=== PATIENT | female | born 1940 | race Caucasian/White ===

== ENCOUNTER 2018-04-09 21:26 | Inpatient (IN) ==
[2018-04-09] MEDS ORDERED: ONDANSETRON 4 MG/2 ML VIAL IV STA (22:34)
[2018-04-09] MEDS ORDERED: MORPHINE 4 MG/1 ML VIAL IV STA (22:34)
[2018-04-09] MEDS ORDERED: methylPREDNISolone SOD SUC 125 MG/2 ML VIAL IV STA (22:34)
[2018-04-09] MEDS ORDERED: cefTRIAXone 1,000 MG in SODIUM CHLORIDE 0.9% 100 ML IV STA (22:34)
[2018-04-09] MEDS ORDERED: ALBUTEROL 2.5 MG/3 ML NEB RESP TX SCH (23:00)
[2018-04-09 23:40] LABS: Basophils % 0.5 % (0.0-0.8); Eosinophils # 0.4 10*3/uL (0.0-0.87); Hematocrit 36.9 VOL% (35.7-47.0); Hemoglobin 11.9 GM/DL (12.0-16.0); Immature Granulocytes % 0.3 %; Immature Granulocytes Absolute 0.02 #; Lymphocytes # 2.3 10*3/uL (1.4-4.0); Lymphocytes % 36.9 % (21.3-54.2); Mean Corpuscular HGB Conc 32.2 GM/DL (32-36); Mean Corpuscular Hemoglobin 32 PG (27-34); Mean Corpuscular Volume 100.5 FL (87-102); Mean Platelet Volume 10.9 FL (9.6-12.0); Monocytes # 0.8 10*3/uL (0.11-0.8); Monocytes % 12.3 % (1.7-12.7); Neutrophils # 2.7 10*3/uL (1.4-7.4); Platelet Count 168 T/CUMM (130-400); Red Blood Count 3.67 MC/CUMM (3.8-5.5); Red Cell Distribution Width 13.9 % (9.3-17.3); White Blood Count 6.2 T/CUMM (4-12)
[2018-04-09 23:50] LABS: PT Patient Result 10.5 SECS
[2018-04-10 00:03] LABS: Alanine Aminotransferase 40 U/L (13-56); Albumin 3.1 G/DL (3.4-5.0); Alkaline Phosphatase 94 U/L (45-117); Aspartate Amino Transferase 31 U/L (0-37); Blood Urea Nitrogen 25 MG/DL (7-18); Glucose 115 MG/DL (74-106); Osmolality,Calculated 287.1 MOS/KG (273-304); Potassium 3.3 MMOL/L (3.5-5.1); Sodium 142 MMOL/L (136-145); Total Protein 6.9 G/DL (6.4-8.3); Troponin I Only 0.033 NG/ML (0.00-0.045)
[2018-04-10 00:08] LABS: Lactic Acid 2.1 MMOL/L (0.4-2.0)
[2018-04-10] MEDS ORDERED: ACETAMINOPHEN 325 MG TABLET PO PRN (02:09)
[2018-04-10] MEDS ORDERED: ALBUTEROL 2.5 MG/3 ML NEB RESP TX PRN (02:09)
[2018-04-10] MEDS ORDERED: MORPHINE 4 MG/1 ML VIAL IV PRN (02:09)
[2018-04-10] MEDS ORDERED: ONDANSETRON 4 MG/2 ML VIAL IV PRN (02:09)
[2018-04-10] MEDS ORDERED: GLUCAGON 1 MG VIAL IM PRN (02:09)
[2018-04-10] MEDS ORDERED: ALBUTEROL/IPRATROPIUM 3 ML NEB RESP TX PRN ×2 (02:09→12:05)
[2018-04-10] MEDS ORDERED: DEXTROSE 50% 25 GM/50 ML VIAL IV PRN (02:09)
[2018-04-10] MEDS: cefTRIAXone 1,000 MG in SYRINGE 1 EACH IV SCH (02:40)
[2018-04-10] MEDS: SODIUM CHLORIDE 0.9% 1,000 ML IV SCH (02:47)
[2018-04-10 04:57] LABS: Hematocrit 33.8 VOL% (35.7-47.0); Hemoglobin 11.1 GM/DL (12.0-16.0); Immature Granulocytes % 0.7 %; Immature Granulocytes Absolute 0.04 #; Lymphocytes # 0.3 10*3/uL (1.4-4.0); Lymphocytes % 4.9 % (21.3-54.2); Mean Corpuscular HGB Conc 32.8 GM/DL (32-36); Mean Corpuscular Hemoglobin 32 PG (27-34); Mean Corpuscular Volume 98.5 FL (87-102); Monocytes # 0.1 10*3/uL (0.11-0.8); Monocytes % 2.3 % (1.7-12.7); Neutrophils # 5.6 10*3/uL (1.4-7.4); Neutrophils % 92.1 % (38.7-73.9); Platelet Count 181 T/CUMM (130-400); Red Blood Count 3.43 MC/CUMM (3.8-5.5); Red Cell Distribution Width 14.2 % (9.3-17.3); White Blood Count 6.1 T/CUMM (4-12)
[2018-04-10 05:36] LABS: Total Protein 6.5 G/DL (6.4-8.3)
[2018-04-10 05:37] LABS: Osmolality,Calculated 295.1 MOS/KG (273-304); Potassium 2.8 MMOL/L (3.5-5.1)
[2018-04-10 05:43] LABS: Lactic Acid 2.5 MMOL/L (0.4-2.0)
[2018-04-10 05:53] LABS: Lymphocytes 2 % (20-55); Segmented Neutrophils 98 % (50-85); Total Cells Counted 100
[2018-04-10 05:54] LABS: Platelet Estimate Adequate; Polychromasia Slight; Target Cells Few
[2018-04-10] MEDS: LEVOTHYROXINE 75 MCG TABLET PO SCH (06:20)
[2018-04-10] MEDS ORDERED: methylPREDNISolone SOD SUC 40 MG/1 ML VIAL IV SCH (08:00)
[2018-04-10] MEDS: INSULIN REGULAR 100 UNIT/ML SUBCUT SCH ×4 (08:47→21:08)
[2018-04-10] MEDS: INSULIN NPH 100 UNIT/ML SUBCUT SCH ×2 (08:48→21:08)
[2018-04-10] MEDS: MULTIVITAMIN (BEROCCA) TABLET PO SCH (08:48)
[2018-04-10] MEDS: PRASUGREL 10 MG TABLET PO SCH (08:48)
[2018-04-10] MEDS: ASPIRIN EC 81 MG TABLET PO SCH (08:49)
[2018-04-10] MEDS: PANTOPRAZOLE 40 MG TABLET PO SCH (08:49)
[2018-04-10] MEDS: SEVELAMER CARBONATE 800 MG TABLET PO SCH ×3 (08:49→16:56)
[2018-04-10] MEDS: DOCUSATE SODIUM 100 MG CAPSULE PO SCH ×2 (08:49→21:10)
[2018-04-10] MEDS: AMIODARONE 200 MG TABLET PO SCH (08:56)
[2018-04-10] MEDS ORDERED: SEVELAMER CARBONATE 800 MG TABLET PO SCH (09:00)
[2018-04-10 19:41] LABS: Calcium 8.1 MG/DL (8.5-10.1); Osmolality,Calculated 283.7 MOS/KG (273-304); Potassium 3.3 MMOL/L (3.5-5.1)
[2018-04-10] MEDS: methylPREDNISolone SOD SUC 40 MG/1 ML VIAL IV SCH (21:08)
[2018-04-10] MEDS: ATORVASTATIN 10 MG TABLET PO SCH (21:09)
[2018-04-11] MEDS: cefTRIAXone 1,000 MG in SYRINGE 1 EACH IV SCH (00:52)
[2018-04-11] MEDS: SODIUM CHLORIDE 0.9% 1,000 ML IV SCH (03:12)
[2018-04-11 05:39] LABS: Basophils % 0.1 % (0.0-0.8); Immature Granulocytes % 0.5 %; Immature Granulocytes Absolute 0.06 #; Lymphocytes # 0.7 10*3/uL (1.4-4.0); Lymphocytes % 5.9 % (21.3-54.2); Mean Corpuscular HGB Conc 33.3 GM/DL (32-36); Mean Corpuscular Hemoglobin 33 PG (27-34); Mean Corpuscular Volume 97.6 FL (87-102); Mean Platelet Volume 11.2 FL (9.6-12.0); Monocytes # 0.5 10*3/uL (0.11-0.8); Monocytes % 3.7 % (1.7-12.7); Neutrophils # 11.3 10*3/uL (1.4-7.4); Neutrophils % 89.8 % (38.7-73.9); Platelet Count 173 T/CUMM (130-400); Red Blood Count 3.38 MC/CUMM (3.8-5.5); Red Cell Distribution Width 14.1 % (9.3-17.3); White Blood Count 12.6 T/CUMM (4-12)
[2018-04-11 06:08] LABS: Osmolality,Calculated 285.7 MOS/KG (273-304); Potassium 3.9 MMOL/L (3.5-5.1)
[2018-04-11 06:13] LABS: Risk Ratio 1.67
[2018-04-11] MEDS: LEVOTHYROXINE 75 MCG TABLET PO SCH (06:18)
[2018-04-11] MEDS: INSULIN REGULAR 100 UNIT/ML SUBCUT SCH ×4 (08:45→21:22)
[2018-04-11] MEDS: methylPREDNISolone SOD SUC 40 MG/1 ML VIAL IV SCH ×2 (08:45→21:22)
[2018-04-11] MEDS: INSULIN NPH 100 UNIT/ML SUBCUT SCH ×2 (08:45→21:23)
[2018-04-11] MEDS: AMIODARONE 200 MG TABLET PO SCH (08:46)
[2018-04-11] MEDS: ASPIRIN EC 81 MG TABLET PO SCH (08:47)
[2018-04-11] MEDS: SEVELAMER CARBONATE 800 MG TABLET PO SCH ×4 (08:47→17:05)
[2018-04-11] MEDS: MULTIVITAMIN (BEROCCA) TABLET PO SCH (08:47)
[2018-04-11] MEDS: DOCUSATE SODIUM 100 MG CAPSULE PO SCH ×2 (08:47→21:33)
[2018-04-11] MEDS: PANTOPRAZOLE 40 MG TABLET PO SCH (08:47)
[2018-04-11] MEDS: PRASUGREL 10 MG TABLET PO SCH (08:47)
[2018-04-11] MEDS: ATORVASTATIN 10 MG TABLET PO SCH (21:22)
[2018-04-12] MEDS: cefTRIAXone 1,000 MG in SYRINGE 1 EACH IV SCH (01:43)
[2018-04-12] MEDS: SODIUM CHLORIDE 0.9% 1,000 ML IV SCH (01:44)
[2018-04-12 04:08] LABS: Basophils % 0.1 % (0.0-0.8); Hematocrit 34.7 VOL% (35.7-47.0); Hemoglobin 11.3 GM/DL (12.0-16.0); Immature Granulocytes % 0.7 %; Immature Granulocytes Absolute 0.12 #; Lymphocytes # 0.9 10*3/uL (1.4-4.0); Lymphocytes % 5.1 % (21.3-54.2); Mean Corpuscular HGB Conc 32.6 GM/DL (32-36); Mean Corpuscular Hemoglobin 32 PG (27-34); Mean Corpuscular Volume 99.4 FL (87-102); Mean Platelet Volume 11.8 FL (9.6-12.0); Monocytes # 0.5 10*3/uL (0.11-0.8); Monocytes % 2.8 % (1.7-12.7); Neutrophils # 16.1 10*3/uL (1.4-7.4); Neutrophils % 91.3 % (38.7-73.9); Platelet Count 192 T/CUMM (130-400); Red Blood Count 3.49 MC/CUMM (3.8-5.5); Red Cell Distribution Width 14.1 % (9.3-17.3); White Blood Count 17.7 T/CUMM (4-12)
[2018-04-12 04:20] LABS: Calcium 8.7 MG/DL (8.5-10.1); Osmolality,Calculated 296.3 MOS/KG (273-304); Potassium 4.1 MMOL/L (3.5-5.1)
[2018-04-12 05:50] LABS: Band Neutrophils 1 % (0-10); Hypochromasia 1+; Lymphocytes 8 % (20-55); Platelet Estimate Adequate; Segmented Neutrophils 89 % (50-85); Total Cells Counted 100
[2018-04-12] MEDS: LEVOTHYROXINE 75 MCG TABLET PO SCH (07:21)
[2018-04-12] MEDS: SEVELAMER CARBONATE 800 MG TABLET PO SCH ×4 (07:22→16:35)
[2018-04-12] MEDS: INSULIN REGULAR 100 UNIT/ML SUBCUT SCH ×4 (08:44→20:50)
[2018-04-12] MEDS: INSULIN NPH 100 UNIT/ML SUBCUT SCH ×2 (09:36→20:49)
[2018-04-12] MEDS: methylPREDNISolone SOD SUC 40 MG/1 ML VIAL IV SCH ×2 (09:37→20:49)
[2018-04-12] MEDS: MULTIVITAMIN (BEROCCA) TABLET PO SCH (09:38)
[2018-04-12] MEDS: PRASUGREL 10 MG TABLET PO SCH (09:38)
[2018-04-12] MEDS: DOCUSATE SODIUM 100 MG CAPSULE PO SCH ×2 (09:38→21:19)
[2018-04-12] MEDS: ASPIRIN EC 81 MG TABLET PO SCH (09:38)
[2018-04-12] MEDS: PANTOPRAZOLE 40 MG TABLET PO SCH (09:38)
[2018-04-12] MEDS: AMIODARONE 200 MG TABLET PO SCH (09:42)
[2018-04-12] MEDS: ATORVASTATIN 10 MG TABLET PO SCH (20:49)
[2018-04-13] MEDS: cefTRIAXone 1,000 MG in SYRINGE 1 EACH IV SCH (00:48)
[2018-04-13] MEDS: SODIUM CHLORIDE 0.9% 1,000 ML IV SCH (04:21)
[2018-04-13 04:38] LABS: Basophils % 0.1 % (0.0-0.8); Hematocrit 32.8 VOL% (35.7-47.0); Hemoglobin 11.1 GM/DL (12.0-16.0); Immature Granulocytes % 0.9 %; Immature Granulocytes Absolute 0.15 #; Lymphocytes # 0.9 10*3/uL (1.4-4.0); Lymphocytes % 5.3 % (21.3-54.2); Mean Corpuscular HGB Conc 33.8 GM/DL (32-36); Mean Corpuscular Hemoglobin 33 PG (27-34); Mean Corpuscular Volume 96.5 FL (87-102); Mean Platelet Volume 11.8 FL (9.6-12.0); Monocytes # 0.5 10*3/uL (0.11-0.8); Monocytes % 3.1 % (1.7-12.7); Neutrophils # 15.4 10*3/uL (1.4-7.4); Neutrophils % 90.6 % (38.7-73.9); Platelet Count 187 T/CUMM (130-400); Red Cell Distribution Width 14.4 % (9.3-17.3)
[2018-04-13 05:11] LABS: Calcium 8.1 MG/DL (8.5-10.1); Osmolality,Calculated 303.5 MOS/KG (273-304); Potassium 4.4 MMOL/L (3.5-5.1)
[2018-04-13 05:19] LABS: Lymphocytes 9 % (20-55); Segmented Neutrophils 89 % (50-85); Total Cells Counted 100
[2018-04-13 05:20] LABS: Atypical Lymphocytes Few; Hypochromasia 1+; Platelet Estimate Normal; Polychromasia Few
[2018-04-13] MEDS: LEVOTHYROXINE 75 MCG TABLET PO SCH (06:05)
[2018-04-13] MEDS: INSULIN REGULAR 100 UNIT/ML SUBCUT SCH ×2 (12:40→12:41)
[2018-04-13] MEDS: SEVELAMER CARBONATE 800 MG TABLET PO SCH ×3 (12:41→12:56)
[2018-04-13] MEDS: PANTOPRAZOLE 40 MG TABLET PO SCH (12:58)
[2018-04-13] MEDS: AMIODARONE 200 MG TABLET PO SCH (12:58)
[2018-04-13] MEDS: ASPIRIN EC 81 MG TABLET PO SCH (12:58)
[2018-04-13] MEDS: PRASUGREL 10 MG TABLET PO SCH (12:59)
[2018-04-13] MEDS: DOCUSATE SODIUM 100 MG CAPSULE PO SCH (12:59)
[2018-04-13] MEDS: MULTIVITAMIN (BEROCCA) TABLET PO SCH (12:59)
[2018-04-13] MEDS: INSULIN NPH 100 UNIT/ML SUBCUT SCH (13:00)
[2018-04-13] MEDS: methylPREDNISolone SOD SUC 40 MG/1 ML VIAL IV SCH (13:01)
[2018-04-13 16:24] VITALS: BP 141/62
== END 2018-04-13 16:23 | disposition home or self-care (01) | DRG 291 ==
LOC: N.ED 21:26 → N.EDINP 04-10 00:55 → N.TELEN 04-10 01:51
PROVIDERS: ADMIT Family Medicine; ATTEND Family Medicine

== ENCOUNTER 2019-10-21 18:33 | Observation (INO) ==
[2019-10-21] MEDS ORDERED: SODIUM CHLORIDE 0.9% 1,000 ML IV STA (19:19)
[2019-10-21] MEDS ORDERED: ONDANSETRON 4 MG/2 ML VIAL IV STA (19:19)
[2019-10-21 19:44] LABS: Basophils % 0.3 % (0.0-0.8); Eosinophils % 0.4 % (0.00-10.9); Hematocrit 41.1 VOL% (35.7-47.0); Hemoglobin 13.1 GM/DL (12.0-16.0); Immature Granulocytes % 0.5 %; Immature Granulocytes Absolute 0.04 #; Lymphocytes # 0.5 10*3/uL (1.4-4.0); Lymphocytes % 6.1 % (21.3-54.2); Mean Corpuscular HGB Conc 31.9 GM/DL (32-36); Mean Corpuscular Volume 102.2 FL (87-102); Mean Platelet Volume 10.9 FL (9.6-12.0); Monocytes % 7.5 % (1.7-12.7); Neutrophils % 85.2 % (38.7-73.9); Platelet Count 209 T/CUMM (130-400); Red Blood Count 4.02 MC/CUMM (3.8-5.5); Red Cell Distribution Width 15.4 % (9.3-17.3); White Blood Count 7.3 T/CUMM (4-12)
[2019-10-21 20:02] LABS: Albumin 3.3 G/DL (3.4-5.0); Bilirubin,Total 0.4 MG/DL (0.2-1.0); Calcium 8.6 MG/DL (8.5-10.1); Osmolality,Calculated 295.1 MOS/KG (273-304); Total Protein 7.2 G/DL (6.4-8.3)
[2019-10-21] MEDS ORDERED: ONDANSETRON 4 MG/2 ML VIAL IV PRN (20:31)
[2019-10-21] MEDS ORDERED: PROMETHAZINE 25 MG/1 ML VIAL IM PRN (20:31)
[2019-10-21] MEDS ORDERED: ACETAMINOPHEN 325 MG TABLET PO PRN (20:31)
[2019-10-21] MEDS ORDERED: hydrALAZINE 20 MG/1 ML VIAL IV PRN (20:58)
[2019-10-21] MEDS ORDERED: GLUCAGON 1 MG VIAL IM PRN (20:59)
[2019-10-21] MEDS ORDERED: DEXTROSE 50% 25 GM/50 ML VIAL IV PRN (20:59)
[2019-10-21] MEDS: INSULIN LISPRO 100 UNIT/ML SUBCUT SCH (22:29)
[2019-10-21] MEDS: DEXTROSE 5% NACL 0.9% 1,000 ML IV SCH (22:36)
[2019-10-22 05:58] LABS: Basophils % 0.2 % (0.0-0.8); Eosinophils # 0.1 10*3/uL (0.0-0.87); Eosinophils % 2.5 % (0.00-10.9); Hemoglobin 10.7 GM/DL (12.0-16.0); Immature Granulocytes % 0.2 %; Immature Granulocytes Absolute 0.01 #; Lymphocytes # 0.6 10*3/uL (1.4-4.0); Lymphocytes % 12.6 % (21.3-54.2); Mean Corpuscular HGB Conc 31.5 GM/DL (32-36); Mean Corpuscular Volume 102.7 FL (87-102); Mean Platelet Volume 11.4 FL (9.6-12.0); Monocytes % 12.8 % (1.7-12.7); Neutrophils % 71.7 % (38.7-73.9); Platelet Count 172 T/CUMM (130-400); Red Blood Count 3.31 MC/CUMM (3.8-5.5); Red Cell Distribution Width 15.6 % (9.3-17.3); White Blood Count 4.5 T/CUMM (4-12)
[2019-10-22 06:30] LABS: Calcium 8.1 MG/DL (8.5-10.1)
[2019-10-22 06:31] LABS: Osmolality,Calculated 286.7 MOS/KG (273-304)
[2019-10-22] MEDS: INSULIN LISPRO 100 UNIT/ML SUBCUT SCH ×3 (09:28→19:32)
[2019-10-22] MEDS ORDERED: SEVELAMER CARBONATE 800 MG TABLET PO SCH (10:00)
[2019-10-22] MEDS: ASPIRIN EC 81 MG TABLET PO SCH (11:12)
[2019-10-22] MEDS: AMIODARONE 200 MG TABLET PO SCH (11:12)
[2019-10-22] MEDS: SEVELAMER CARBONATE 800 MG TABLET PO SCH ×2 (11:13→17:13)
[2019-10-22] MEDS: PRASUGREL 10 MG TABLET PO SCH (11:13)
[2019-10-22] MEDS: DEXTROSE 5% NACL 0.9% 1,000 ML IV SCH (13:15)
[2019-10-22] MEDS: CHOLESTYRAMINE 4 GM PACK PO SCH ×2 (15:20→23:54)
[2019-10-22 19:21] LABS: Hepatitis B Core IgM Quant 0.05 Index; Hepatitis B Surface Ag Quant < 0.10 Index; Hepatitis B Surface Ag Result Negative (Negative); Hepatitis C Virus Ab Quant 0.16 Index; Hepatitis C Virus Ab Result Negative (Negative)
[2019-10-22] MEDS: ATORVASTATIN 10 MG TABLET PO SCH (23:54)
[2019-10-23] MEDS: INSULIN LISPRO 100 UNIT/ML SUBCUT SCH ×5 (00:15→22:07)
[2019-10-23 05:43] LABS: Basophils % 0.2 % (0.0-0.8); Eosinophils # 0.2 10*3/uL (0.0-0.87); Eosinophils % 3.3 % (0.00-10.9); Hematocrit 33.1 VOL% (35.7-47.0); Hemoglobin 10.3 GM/DL (12.0-16.0); Immature Granulocytes % 0.4 %; Immature Granulocytes Absolute 0.02 #; Lymphocytes # 0.8 10*3/uL (1.4-4.0); Lymphocytes % 14.9 % (21.3-54.2); Mean Corpuscular HGB Conc 31.1 GM/DL (32-36); Mean Corpuscular Volume 104.4 FL (87-102); Mean Platelet Volume 10.9 FL (9.6-12.0); Neutrophils % 65.2 % (38.7-73.9); Platelet Count 173 T/CUMM (130-400); Red Blood Count 3.17 MC/CUMM (3.8-5.5); Red Cell Distribution Width 15.2 % (9.3-17.3); White Blood Count 5.5 T/CUMM (4-12)
[2019-10-23 06:11] LABS: Free T4 (Free Thyroxine) 1.03 NG/DL (0.76-1.46); Thyroid Stimulating Hormone 1.51 uIU/ml (0.358-3.74)
[2019-10-23] MEDS: LEVOTHYROXINE 75 MCG TABLET PO SCH (06:12)
[2019-10-23 06:14] LABS: Folate 20.6 NG/ML (5.4-24.0); Vitamin B12 1159 PG/ML (211-911)
[2019-10-23 06:19] LABS: % Iron Saturation 10.9 % (18-50); Calcium 7.9 MG/DL (8.5-10.1); Ferritin 992.5 ng/ml (8-252); Osmolality,Calculated 278.7 MOS/KG (273-304)
[2019-10-23 06:41] LABS: Band Neutrophils 2 % (0-10); Eosinophils 4 % (0-10); Lymphocytes 14 % (20-55); Segmented Neutrophils 64 % (50-85); Total Cells Counted 100
[2019-10-23 06:42] LABS: Hypochromasia 1+; Platelet Estimate Normal; Polychromasia Few
[2019-10-23 07:11] LABS: Sedimentation Rate-Westergren 50 MM/HR (0-30)
[2019-10-23 08:00] LABS: Parathyroid Hormone Intact 390.6 PG/ML (18.4-80.1)
[2019-10-23] MEDS: PRASUGREL 10 MG TABLET PO SCH (08:09)
[2019-10-23] MEDS: ASPIRIN EC 81 MG TABLET PO SCH (08:09)
[2019-10-23] MEDS: AMIODARONE 200 MG TABLET PO SCH (08:09)
[2019-10-23] MEDS: CHOLESTYRAMINE 4 GM PACK PO SCH ×2 (08:09→21:59)
[2019-10-23] MEDS: SEVELAMER CARBONATE 800 MG TABLET PO SCH ×3 (08:11→18:00)
[2019-10-23] MEDS: DEXTROSE 5% NACL 0.9% 1,000 ML IV SCH ×2 (08:14→22:00)
[2019-10-23] MEDS: ATORVASTATIN 10 MG TABLET PO SCH (21:59)
[2019-10-24] MEDS: LEVOTHYROXINE 75 MCG TABLET PO SCH (05:33)
[2019-10-24 05:34] LABS: Basophils % 0.4 % (0.0-0.8); Eosinophils # 0.2 10*3/uL (0.0-0.87); Eosinophils % 4.4 % (0.00-10.9); Hematocrit 32.2 VOL% (35.7-47.0); Hemoglobin 10.1 GM/DL (12.0-16.0); Immature Granulocytes % 0.4 %; Immature Granulocytes Absolute 0.02 #; Lymphocytes % 18.1 % (21.3-54.2); Mean Corpuscular HGB Conc 31.4 GM/DL (32-36); Mean Corpuscular Volume 105.2 FL (87-102); Mean Platelet Volume 11.3 FL (9.6-12.0); Monocytes % 15.4 % (1.7-12.7); Neutrophils % 61.3 % (38.7-73.9); Platelet Count 158 T/CUMM (130-400); Red Blood Count 3.06 MC/CUMM (3.8-5.5); Red Cell Distribution Width 14.6 % (9.3-17.3); White Blood Count 5.5 T/CUMM (4-12)
[2019-10-24] MEDS: SEVELAMER CARBONATE 800 MG TABLET PO SCH ×3 (08:24→17:25)
[2019-10-24] MEDS: ASPIRIN EC 81 MG TABLET PO SCH (08:24)
[2019-10-24] MEDS: AMIODARONE 200 MG TABLET PO SCH (08:25)
[2019-10-24] MEDS: PRASUGREL 10 MG TABLET PO SCH (08:25)
[2019-10-24] MEDS: INSULIN LISPRO 100 UNIT/ML SUBCUT SCH ×4 (08:26→21:00)
[2019-10-24] MEDS: CHOLESTYRAMINE 4 GM PACK PO SCH ×2 (08:26→21:01)
[2019-10-24] MEDS: DEXTROSE 5% NACL 0.9% 1,000 ML IV SCH (14:43)
[2019-10-24] MEDS ORDERED: DEXTROSE 10% 250 ML BAG IV PRN (17:32)
[2019-10-24] MEDS: ATORVASTATIN 10 MG TABLET PO SCH (21:00)
[2019-10-25] MEDS: LEVOTHYROXINE 75 MCG TABLET PO SCH (06:47)
[2019-10-25 07:04] LABS: Basophils % 0.3 % (0.0-0.8); Eosinophils # 0.3 10*3/uL (0.0-0.87); Eosinophils % 4.6 % (0.00-10.9); Hematocrit 33.1 VOL% (35.7-47.0); Hemoglobin 10.4 GM/DL (12.0-16.0); Immature Granulocytes % 0.3 %; Immature Granulocytes Absolute 0.02 #; Lymphocytes # 1.2 10*3/uL (1.4-4.0); Lymphocytes % 19.4 % (21.3-54.2); Mean Corpuscular HGB Conc 31.4 GM/DL (32-36); Mean Corpuscular Volume 103.1 FL (87-102); Mean Platelet Volume 11.6 FL (9.6-12.0); Monocytes % 12.2 % (1.7-12.7); Neutrophils % 63.2 % (38.7-73.9); Platelet Count 170 T/CUMM (130-400); Red Blood Count 3.21 MC/CUMM (3.8-5.5); Red Cell Distribution Width 14.3 % (9.3-17.3); White Blood Count 5.9 T/CUMM (4-12)
[2019-10-25] MEDS: PRASUGREL 10 MG TABLET PO SCH (08:16)
[2019-10-25] MEDS: DEXTROSE 5% NACL 0.9% 1,000 ML IV SCH (08:16)
[2019-10-25] MEDS: ASPIRIN EC 81 MG TABLET PO SCH (08:16)
[2019-10-25] MEDS: AMIODARONE 200 MG TABLET PO SCH (08:16)
[2019-10-25] MEDS: SEVELAMER CARBONATE 800 MG TABLET PO SCH ×3 (08:17→17:20)
[2019-10-25] MEDS: INSULIN LISPRO 100 UNIT/ML SUBCUT SCH ×3 (08:18→15:58)
[2019-10-25] MEDS: CHOLESTYRAMINE 4 GM PACK PO SCH (08:18)
[2019-10-25 21:02] VITALS: BP 121/68
[2019-10-27 10:18] LABS: Hemoglobin A1 (Alkaline) 98.2 % (96.5-98.5); Hemoglobin A2 (Alkaline) 1.8 % (1.5-3.5)
== END 2019-10-25 20:32 | disposition home or self-care (01) ==
LOC: N.ED 18:33 → N.EDINP 18:33 → SUATTDRO 20:31 → N.EDINP 21:30 → N.5E 22:05
PROVIDERS: ADMIT Hospitalist; ATTEND Internal Medicine

== ENCOUNTER 2019-11-27 20:50 | Inpatient (IN) ==
[2019-11-27] MEDS ORDERED: ONDANSETRON 4 MG/2 ML VIAL IV STA (21:15)
[2019-11-27] MEDS ORDERED: ALBUTEROL/IPRATROPIUM 3 ML NEB RESP TX STA (21:15)
[2019-11-27] MEDS ORDERED: methylPREDNISolone SOD SUC 125 MG/2 ML VIAL IV STA (21:20)
[2019-11-27 21:59] LABS: Basophils % 0.4 % (0.0-0.8); Eosinophils # 0.4 10*3/uL (0.0-0.87); Eosinophils % 3.4 % (0.00-10.9); Hematocrit 37.2 VOL% (35.7-47.0); Immature Granulocytes % 0.5 %; Immature Granulocytes Absolute 0.06 #; Lymphocytes # 0.7 10*3/uL (1.4-4.0); Lymphocytes % 6.2 % (21.3-54.2); Mean Corpuscular HGB Conc 32.3 GM/DL (32-36); Mean Corpuscular Volume 101.1 FL (87-102); Mean Platelet Volume 11.4 FL (9.6-12.0); Monocytes % 10.7 % (1.7-12.7); Neutrophils % 78.8 % (38.7-73.9); Platelet Count 158 T/CUMM (130-400); Red Blood Count 3.68 MC/CUMM (3.8-5.5); Red Cell Distribution Width 15.2 % (9.3-17.3); White Blood Count 11.4 T/CUMM (4-12)
[2019-11-27 22:20] LABS: Alanine Aminotransferase 25 U/L (13-56); Albumin 3.2 G/DL (3.4-5.0); Alkaline Phosphatase 132 U/L (45-117); Aspartate Amino Transferase 23 U/L (0-37); Blood Urea Nitrogen 29 MG/DL (7-18); Calcium 8.4 MG/DL (8.5-10.1); Estimated Glom Filtration Rate 6 ML/MIN; Glucose 143 MG/DL (74-106); Osmolality,Calculated 286.4 MOS/KG (273-304); Total Protein 7.4 G/DL (6.4-8.3); Troponin I 0.025 NG/ML (0.00-0.045)
[2019-11-27 22:26] LABS: PT Patient Result 10.7 SECS (9.6-12.2); Partial Thromboplastin Time 24.3 SECS (20.8-36.0)
[2019-11-28] MEDS ORDERED: DEXTROSE 50% 25 GM/50 ML SYRINGE IV PRN (03:41)
[2019-11-28] MEDS ORDERED: ALBUTEROL/IPRATROPIUM 3 ML NEB RESP TX PRN (03:41)
[2019-11-28] MEDS ORDERED: ONDANSETRON 4 MG/2 ML VIAL IV PRN (03:41)
[2019-11-28] MEDS ORDERED: GLUCAGON 1 MG VIAL IM PRN (03:41)
[2019-11-28] MEDS ORDERED: DOCUSATE SODIUM 100 MG CAPSULE PO PRN (03:41)
[2019-11-28] MEDS ORDERED: ACETAMINOPHEN 325 MG TABLET PO PRN (03:41)
[2019-11-28] MEDS ORDERED: NITROGLYCERIN SL 0.4 MG TABLET SL PRN (03:41)
[2019-11-28 06:23] LABS: Basophils % 0.2 % (0.0-0.8); Hemoglobin 10.9 GM/DL (12.0-16.0); Immature Granulocytes % 0.4 %; Immature Granulocytes Absolute 0.04 #; Lymphocytes # 0.3 10*3/uL (1.4-4.0); Lymphocytes % 3.4 % (21.3-54.2); Mean Corpuscular HGB Conc 32.1 GM/DL (32-36); Mean Corpuscular Volume 100.6 FL (87-102); Monocytes % 1.1 % (1.7-12.7); Neutrophils % 94.9 % (38.7-73.9); Platelet Count 168 T/CUMM (130-400); Red Blood Count 3.38 MC/CUMM (3.8-5.5); Red Cell Distribution Width 15.3 % (9.3-17.3); White Blood Count 9.2 T/CUMM (4-12)
[2019-11-28] MEDS: LEVOTHYROXINE 75 MCG TABLET PO SCH (06:36)
[2019-11-28] MEDS: SEVELAMER CARBONATE 800 MG TABLET PO SCH ×5 (06:36→23:05)
[2019-11-28 06:49] LABS: Calcium 8.3 MG/DL (8.5-10.1); Osmolality,Calculated 291.5 MOS/KG (273-304)
[2019-11-28 08:22] LABS: Anisocytosis Slight; Band Neutrophils 4 % (0-10); Lymphocytes 4 % (20-55); Macrocytosis 1+; Platelet Estimate Normal; Segmented Neutrophils 90 % (50-85); Total Cells Counted 100
[2019-11-28] MEDS: INSULIN LISPRO 100 UNIT/ML SUBCUT SCH ×4 (08:54→21:47)
[2019-11-28] MEDS: PRASUGREL 10 MG TABLET PO SCH (08:55)
[2019-11-28] MEDS: ASPIRIN EC 81 MG TABLET PO SCH (08:55)
[2019-11-28] MEDS: INSULIN NPH 100 UNIT/ML SUBCUT SCH ×2 (08:55→17:10)
[2019-11-28] MEDS: MULTIVITAMIN (BEROCCA) TABLET PO SCH (08:55)
[2019-11-28] MEDS: AMIODARONE 200 MG TABLET PO SCH (08:56)
[2019-11-28] MEDS: ATORVASTATIN 10 MG TABLET PO SCH (21:47)
[2019-11-29 04:47] LABS: Basophils % 0.2 % (0.0-0.8); Eosinophils % 0.1 % (0.00-10.9); Hematocrit 33.2 VOL% (35.7-47.0); Hemoglobin 10.6 GM/DL (12.0-16.0); Immature Granulocytes % 0.6 %; Immature Granulocytes Absolute 0.08 #; Lymphocytes # 0.7 10*3/uL (1.4-4.0); Lymphocytes % 5.5 % (21.3-54.2); Mean Corpuscular HGB Conc 31.9 GM/DL (32-36); Mean Corpuscular Volume 101.8 FL (87-102); Mean Platelet Volume 11.9 FL (9.6-12.0); Monocytes % 8.6 % (1.7-12.7); Platelet Count 175 T/CUMM (130-400); Red Blood Count 3.26 MC/CUMM (3.8-5.5); Red Cell Distribution Width 15.4 % (9.3-17.3); White Blood Count 13.4 T/CUMM (4-12)
[2019-11-29 05:06] LABS: Osmolality,Calculated 294.5 MOS/KG (273-304)
[2019-11-29] MEDS: SEVELAMER CARBONATE 800 MG TABLET PO SCH ×4 (06:00→18:41)
[2019-11-29] MEDS: LEVOTHYROXINE 75 MCG TABLET PO SCH (06:01)
[2019-11-29] MEDS: INSULIN LISPRO 100 UNIT/ML SUBCUT SCH ×4 (08:20→22:46)
[2019-11-29] MEDS: INSULIN NPH 100 UNIT/ML SUBCUT SCH ×2 (09:35→18:21)
[2019-11-29] MEDS: ASPIRIN EC 81 MG TABLET PO SCH (10:13)
[2019-11-29] MEDS: PRASUGREL 10 MG TABLET PO SCH (10:14)
[2019-11-29] MEDS: AMIODARONE 200 MG TABLET PO SCH (10:14)
[2019-11-29] MEDS: MULTIVITAMIN (BEROCCA) TABLET PO SCH (10:17)
[2019-11-29] MEDS ORDERED: SEVELAMER CARBONATE 800 MG TABLET PO PRN (12:47)
[2019-11-29] MEDS ORDERED: cefTRIAXone 1,000 MG in SODIUM CHLORIDE 0.9% 100 ML IV SCH (17:00)
[2019-11-29] MEDS: cefTRIAXone 1,000 MG in SYRINGE 1 EACH IV SCH (18:41)
[2019-11-29] MEDS: methylPREDNISolone SOD SUC 40 MG/1 ML VIAL IV SCH (18:41)
[2019-11-29] MEDS: ATORVASTATIN 10 MG TABLET PO SCH (22:46)
[2019-11-30] MEDS: methylPREDNISolone SOD SUC 40 MG/1 ML VIAL IV SCH ×3 (03:26→17:28)
[2019-11-30] MEDS: LEVOTHYROXINE 75 MCG TABLET PO SCH (06:40)
[2019-11-30 07:01] LABS: Basophils % 0.1 % (0.0-0.8); Hematocrit 33.4 VOL% (35.7-47.0); Hemoglobin 10.7 GM/DL (12.0-16.0); Immature Granulocytes % 0.6 %; Immature Granulocytes Absolute 0.06 #; Lymphocytes # 0.4 10*3/uL (1.4-4.0); Mean Platelet Volume 11.6 FL (9.6-12.0); Monocytes % 1.4 % (1.7-12.7); Neutrophils % 93.9 % (38.7-73.9); Platelet Count 164 T/CUMM (130-400); Red Blood Count 3.34 MC/CUMM (3.8-5.5); Red Cell Distribution Width 15.5 % (9.3-17.3); White Blood Count 9.7 T/CUMM (4-12)
[2019-11-30 07:22] LABS: Hypochromasia 1+; Lymphocytes 3 % (20-55); Platelet Estimate Adequate; Segmented Neutrophils 96 % (50-85); Total Cells Counted 100
[2019-11-30 07:37] LABS: Albumin 2.6 G/DL (3.4-5.0); Bilirubin,Total 0.6 MG/DL (0.2-1.0); Calcium 7.8 MG/DL (8.5-10.1); Osmolality,Calculated 285.8 MOS/KG (273-304); Total Protein 6.8 G/DL (6.4-8.3)
[2019-11-30] MEDS: AMIODARONE 200 MG TABLET PO SCH (10:50)
[2019-11-30] MEDS: MULTIVITAMIN (BEROCCA) TABLET PO SCH (10:51)
[2019-11-30] MEDS: SEVELAMER CARBONATE 800 MG TABLET PO SCH ×4 (10:51→17:27)
[2019-11-30] MEDS: ASPIRIN EC 81 MG TABLET PO SCH (10:51)
[2019-11-30] MEDS: INSULIN NPH 100 UNIT/ML SUBCUT SCH ×2 (10:52→17:27)
[2019-11-30] MEDS: INSULIN LISPRO 100 UNIT/ML SUBCUT SCH ×5 (10:52→21:01)
[2019-11-30] MEDS: cefTRIAXone 1,000 MG in SYRINGE 1 EACH IV SCH (12:34)
[2019-11-30] MEDS ORDERED: VANCOMYCIN INJ 750 MG in SODIUM CHLORIDE 0.9% 250 ML IV ONE (14:00)
[2019-11-30] MEDS ORDERED: VANCOMYCIN INJ 750 MG in SODIUM CHLORIDE 0.9% 250 ML IV PRN (18:17)
[2019-11-30] MEDS ORDERED: VANCOMYCIN INJ 2,000 MG in SODIUM CHLORIDE 0.9% 500 ML IV ONE (20:00)
[2019-11-30] MEDS: ATORVASTATIN 10 MG TABLET PO SCH (21:01)
[2019-12-01] MEDS: methylPREDNISolone SOD SUC 40 MG/1 ML VIAL IV SCH ×2 (00:17→08:16)
[2019-12-01 05:54] LABS: Basophils % 0.1 % (0.0-0.8); Hematocrit 35.1 VOL% (35.7-47.0); Hemoglobin 11.3 GM/DL (12.0-16.0); Immature Granulocytes Absolute 0.12 #; Lymphocytes # 0.7 10*3/uL (1.4-4.0); Lymphocytes % 5.8 % (21.3-54.2); Mean Corpuscular HGB Conc 32.2 GM/DL (32-36); Mean Corpuscular Volume 99.7 FL (87-102); Mean Platelet Volume 11.6 FL (9.6-12.0); Monocytes % 3.3 % (1.7-12.7); NRBC # 0.02 10*3/uL; Neutrophils % 89.8 % (38.7-73.9); Platelet Count 174 T/CUMM (130-400); Red Blood Count 3.52 MC/CUMM (3.8-5.5); White Blood Count 12.2 T/CUMM (4-12)
[2019-12-01] MEDS: LEVOTHYROXINE 75 MCG TABLET PO SCH (06:10)
[2019-12-01 06:12] LABS: Albumin 2.5 G/DL (3.4-5.0); Bilirubin,Total 0.5 MG/DL (0.2-1.0); Calcium 7.7 MG/DL (8.5-10.1); Osmolality,Calculated 286.1 MOS/KG (273-304); Risk Ratio 1.63; Total Protein 6.5 G/DL (6.4-8.3); VLDL CHOLESTEROL 8.8 MG/DL
[2019-12-01] MEDS: INSULIN LISPRO 100 UNIT/ML SUBCUT SCH ×4 (07:48→22:02)
[2019-12-01] MEDS: ASPIRIN EC 81 MG TABLET PO SCH (08:17)
[2019-12-01] MEDS: cefTRIAXone 1,000 MG in SYRINGE 1 EACH IV SCH (08:17)
[2019-12-01] MEDS: MULTIVITAMIN (BEROCCA) TABLET PO SCH (08:18)
[2019-12-01] MEDS: AMIODARONE 200 MG TABLET PO SCH (08:18)
[2019-12-01] MEDS: SEVELAMER CARBONATE 800 MG TABLET PO SCH ×3 (08:20→18:58)
[2019-12-01] MEDS: INSULIN NPH 100 UNIT/ML SUBCUT SCH ×2 (10:06→18:58)
[2019-12-01] MEDS: ATORVASTATIN 10 MG TABLET PO SCH (18:58)
[2019-12-02 06:07] LABS: Basophils % 0.2 % (0.0-0.8); Hematocrit 36.9 VOL% (35.7-47.0); Hemoglobin 11.9 GM/DL (12.0-16.0); Immature Granulocytes % 1.2 %; Immature Granulocytes Absolute 0.15 #; Lymphocytes # 0.8 10*3/uL (1.4-4.0); Mean Corpuscular HGB Conc 32.2 GM/DL (32-36); Mean Corpuscular Volume 98.9 FL (87-102); Mean Platelet Volume 11.5 FL (9.6-12.0); Monocytes % 7.6 % (1.7-12.7); NRBC # 0.04 10*3/uL; Platelet Count 200 T/CUMM (130-400); Red Blood Count 3.73 MC/CUMM (3.8-5.5); Red Cell Distribution Width 15.3 % (9.3-17.3); White Blood Count 12.8 T/CUMM (4-12)
[2019-12-02] MEDS: LEVOTHYROXINE 75 MCG TABLET PO SCH (06:17)
[2019-12-02 06:23] LABS: Albumin 2.5 G/DL (3.4-5.0); Bilirubin,Total 0.4 MG/DL (0.2-1.0); Calcium 8.2 MG/DL (8.5-10.1); Total Protein 6.4 G/DL (6.4-8.3)
[2019-12-02] MEDS: SEVELAMER CARBONATE 800 MG TABLET PO SCH (07:18)
[2019-12-02 08:01] VITALS: BP 148/50
[2019-12-02] MEDS: ASPIRIN EC 81 MG TABLET PO SCH (08:20)
[2019-12-02] MEDS: AMIODARONE 200 MG TABLET PO SCH (08:20)
[2019-12-02] MEDS: MULTIVITAMIN (BEROCCA) TABLET PO SCH (08:20)
[2019-12-02] MEDS: INSULIN NPH 100 UNIT/ML SUBCUT SCH (08:22)
[2019-12-02] MEDS: cefTRIAXone 1,000 MG in SYRINGE 1 EACH IV SCH (08:22)
[2019-12-02] MEDS: INSULIN LISPRO 100 UNIT/ML SUBCUT SCH (08:35)
[2019-12-02] MEDS ORDERED: predniSONE 20 MG TABLET PO SCH (09:00)
== END 2019-12-02 10:59 | disposition home or self-care (01) | DRG 291 ==
LOC: N.ED 20:50 → N.EDINP 20:50 → N.TELES 11-28 03:40 → N.2E 11-29 19:23 → SUATTDRO 11-30 06:33
PROVIDERS: ADMIT Hospitalist; ATTEND Internal Medicine Cardiovascular Disease